=== PATIENT | male | born 1965 | race Caucasian/White ===

== ENCOUNTER 2020-01-10 12:54 | Emergency (ER) | payer SELFPAY ==
[2020-01-10 13:10] VITALS: BP 148/94; PULSE 88; RESP 18; TEMP 37.7; O2SAT 97; BMI 26.4
--- NOTE | 2020-01-10 13:32 | HMH.EDUTC ---
[facility] [place] Clinical Impression: Strep throat Disposition: Home, Self-Care Condition on Discharge: Good Instructions: Strep Throat (Alternative Therapy), Strep Throat, DI for Strep Throat Additional Instructions: *Monitor Temp, Over the counter Motrin or Tylenol as directed/as needed Tylenol every 4 hours and Motrin every 6 hours (as long as your family doctor has told you that you can take it) for fever or pain. and straight to ER if unable to lower temp less than 101.0 after medication given *Warm salt water gargles may help to soothe the throat *Throat Lozenges *Warm fluids like tea with honey may help to soothe the throat *Sleep elevated *Humidifier/Vaporizer *If you did not take Penicillin shot or was unable to, start taking antibiotic immediately and make sure that you take it for the FULL length of time although you should start to feel better in 24-48 hours *change toothbrush and toothpaste 24-48 hours after starting to take antibiotics so you do not reinfect yourself Monitor Temp. Tylenol and/or Ibuprofen as needed. ER if fever is no less than 101 despite alternating Tylenol and Ibuprofen * Encourage fluids, water, Gatorade, powerade, pedialyte if infant/toddler/or child *Cold fluids, popsicles and ice cream may feel good on his throat * Follow up IMMEDIATELY for new or worsening symptoms or no Noticeable improvement over the next 48-72 hours. 911 for difficulty breathing or swallowing Referrals: PCP,No [Primary Care Provider] - As needed Time of Disposition: 13:41 Medical Decision Making - Camron Inquiry Pt receiving controlled substance: No Camron was queried for this patient: No Vital Signs: 01/10/20 13:10 Temperature 99.9 F H Temperature Source Oral Pulse Rate [Right Brachial] 88 Respiratory Rate 18 Blood Pressure [Right Arm] 148/94 H Blood Pressure Mean [Right Arm] 112 Blood Pressure Source [Right Arm] Automatic Cuff Blood Pressure Position [Right Arm] Sitting 02 Sat by Pulse Oximetry 97 Oxygen Delivery Method Room Air - Lab Data Lab results reviewed: Yes: I reviewed the patient's lab results. Lab Results 01/10/20 13:44: Strep Scn [facility] Positive A Orders (Tests/Meds): ED MEDICATIONS Discontinued Medications Generic Name Dose Route Start Last Admin Trade Name Freq PRN Reason Stop Dose Admin Methylprednisolone Sodium Succinate 125 mg 01/10/20 13:37 01/10/20 13:50 Methylprednisolone Sod Succ 125mg Vial IM 01/10/20 13:38 125 mg ONCE ONE Administration Penicillin G Benzathine 1,200,000 unit 01/10/20 13:37 01/10/20 13:50 Penicillin G Benzathine 1,200,000 Units/2ml Syringe IM 01/10/20 13:38 1,200,000 unit ONCE ONE Administration Protocol ORDERS Category Date Time Status Covid-19 Nasal PCR ([facility]) Routine Lab 01/10/20 14:02 Ordered [facility] [place] HPI - General Stated complaint: sore throat Time Seen by Provider: 01/10/20 13:32 Mode of Arrival: Ambulatory Source of Information: Patient Limitations: No Limitations Description of Symptoms (Recalled from Triage Doc. by RN): PATIENT C/O SORE THROAT, FEVER, RIGHT EAR AND JAW PAIN SINCE FRIDAY NIGHT HEENT Symptoms (Recalled from RN notes): Yes Resp Symptoms (Recalled from RN notes): No Skin Symptoms (Recalled from RN notes): No MS Symptoms (Recalled from RN notes): No Functional Status (Recalled from RN notes): WNL - History of Present Illness Provider Complaint: Patient states that he started not feeling well last week and has been laying around thinking he may have had the flu States that his throat started hurting on Friday and has continued to get worse States that he has been having pain in his throat and ear when he swallows States that this morning it hurt when he swallowed his coffee so he come in to get checked - Related Data Home Medications Medication Instructions Recorded Confirmed No Known Home Medications 01/10/20 01/10/20 Allergies Allergy/AdvReac Type Severity Re
[2020-01-10 13:52] LABS: UTC Strep Screen (Rapid) Positive (Negative)
[2020-01-10 14:10] VITALS: BP 148/94; PULSE 88; RESP 18; TEMP 37.7; O2SAT 97
== END 2020-01-10 14:15 | disposition home or self-care (01) ==
PROVIDERS: Emergency Provider Nurse Practitioner
DX: J02.0 Streptococcal pharyngitis (principal)
CPT/HCPCS: 87880; 96372; 99202; J0561

== ENCOUNTER 2021-10-08 12:27 | Emergency (ER) | payer SELFPAY ==
[2021-10-08 12:30] VITALS: BP 138/90; PULSE 75; RESP 18; TEMP 36.7; O2SAT 98; BMI 27.1
[2021-10-08 12:54] VITALS: BP 138/90; PULSE 75; RESP 18; TEMP 36.7; O2SAT 98; BMI 27.3
--- NOTE | 2021-10-08 13:13 | HMH.EDUTC ---
[place] Disposition Clinical Impression: Contact dermatitis Qualifiers: Contact dermatitis type: allergic Contact dermatitis trigger: non-food plants Qualified Code(s): L23.7 - Allergic contact dermatitis due to plants, except food Cellulitis Qualifiers: Site of cellulitis: trunk Site of cellulitis of trunk: back Qualified Code(s): L03.312 - Cellulitis of back [any part except buttock] Disposition: Home, Self-Care Condition on Discharge: Good Instructions: Cellulitis, DI for Contact Dermatitis Additional Instructions: Try to identify and avoid contact with the offending substance. Don't start the oral steroids until tomorrow. Don't put the topical steroids (triamcinolone) on your face or your groin. Follow up with your regular doctor. GO TO THE ER FOR ANY WORSENING SYMPTOMS OR CONCERNS Prescriptions: cephALEXin [cephALEXin 500mg capsule] 500 mg PO Q6H 10 Days #40 cap Transmission Status: Received by [id number] methylPREDNISolone [Medrol] 4 mg PO DIRECTED 6 Days #21 packet Transmission Status: Received by [id number] Triamcinolone Acetonide 1 applicatio TP TIDP PRN 7 Days #1 gm PRN Reason: Itching Transmission Status: Received by [id number] Referrals: Provider,Referral, MD [Primary Care Provider] - Time of Disposition: 13:27 Medical Decision Making - Medical Records Medical records reviewed: No: I reviewed the patient's medical records. - Camron Inquiry Pt receiving controlled substance: No Vital Signs: 10/08/21 12:30 10/08/21 12:54 10/08/21 13:34 Temperature 98.0 F 98.0 F 98.0 F Temperature Source Oral Oral Pulse Rate 75 Pulse Rate [Left Radial] 75 75 Respiratory Rate 18 18 18 Blood Pressure 138/90 Blood Pressure [Left Arm] 138/90 138/90 Blood Pressure Mean [Left Arm] 106 106 Blood Pressure Source [Left Arm] Automatic Cuff Blood Pressure Position [Left Arm] Sitting 02 Sat by Pulse Oximetry 98 98 Oxygen Delivery Method Room Air [place] HPI - General Stated complaint: Rash on back Time Seen by Provider: 10/08/21 13:13 Mode of Arrival: Ambulatory Source of Information: Patient Limitations: No Limitations Description of Symptoms (Recalled from Triage Doc. by RN): patient comes in with complaints of rash on back. patient states rash began 1 week ago, but has began to get worse HEENT Symptoms (Recalled from RN notes): No Resp Symptoms (Recalled from RN notes): No Skin Symptoms (Recalled from RN notes): Yes MS Symptoms (Recalled from RN notes): No Functional Status (Recalled from RN notes): n/a - History of Present Illness Provider Complaint: He is here with complaints of having a rash on his back for the past 2 weeks. He believes he was origianally bit by a bug, but then it has got infected. He denies any fever or chills. - Related Data Previous Rx's Medication Instructions Recorded Triamcinolone Acetonide 1 applicatio TP TIDP PRN 7 Days #1 10/08/21 gm cephALEXin [cephALEXin 500mg 500 mg PO Q6H 10 Days #40 cap 10/08/21 capsule] methylPREDNISolone [Medrol] 4 mg PO DIRECTED 6 Days #21 10/08/21 packet Allergies Allergy/AdvReac Type Severity Reaction Status Date / Time No Known Allergies Allergy Verified 10/08/21 12:57 - Worker's Comp Is this a Worker's Comp case?: No [facility] History - Hepatitis A Screen Attestation statement:: This patient has been screened for Hepatitis A risk factors. I have reviewed the patient's past medical history: Yes - Social History Alcohol Intake: never Occupational Status: other ROS Obtained: Yes All systems reviewed & no additional complaints - Constitutional Constitutional: Reports as per HPI - Eyes Eyes: Reports eye discharge - ENT Ears, Nose, Mouth, and Throat: Reports as per HPI - Cardiovascular Cardiovascular: Denies chest pain Physical Exam - General General appearance: alert, in no apparent distress - Head Head exam: atraumatic, normocephalic, no
[2021-10-08 13:34] VITALS: BP 138/90; PULSE 75; RESP 18; TEMP 36.7
== END 2021-10-08 13:35 | disposition home or self-care (01) ==
PROVIDERS: Emergency Provider Nurse Practitioner Family
DX: L23.7 Allergic contact dermatitis due to plants, except food (principal); L03.312 Cellulitis of back [any part except buttock and flank]; Z79.52 Long term (current) use of systemic steroids; Z79.899 Other long term (current) drug therapy
CPT/HCPCS: 99213; G0463

== ENCOUNTER 2021-10-15 09:40 | Emergency (ER) | payer SELFPAY ==
[2021-10-15 09:45] VITALS: BP 141/86; PULSE 71; RESP 19; TEMP 36.8; O2SAT 98; BMI 28.6
--- NOTE | 2021-10-15 09:59 | HMH.EDUTC ---
[facility] – [place] Disposition Clinical Impression: Urticaria Disposition: Home, Self-Care Condition on Discharge: Good Instructions: DI for Rash Additional Instructions: Look around at home and make sure there is nothing that has changed that you could be reacting too Check to make sure that nothing has changed Clean bedding and chairs to make sure that nothing could have got on them that you are coming into contact with Follow up with your Family Doctor for further evaluation and examination Follow up [facility] for further testing Return if needed Straight to ER if any life threatening symptoms Prescriptions: predniSONE [Prednisone 20mg Tab] 20 mg PO BID 5 Days #10 tab Transmission Status: Received by [facility] Referrals: Provider,MD Ayaan [Primary Care Provider] - As needed Ronni Arvizu [Referring] - (make appointment for allergy testing) Gisela Vance MD [Referring] - (make appointment for Dermatology) Time of Disposition: : Medical Decision Making - Camron Inquiry Pt receiving controlled substance: No Camron was queried for this patient: No Vital Signs: 10/15/21 09:45 10/15/21 10:10 Temperature 98.2 F 98.2 F Temperature Source Oral Pulse Rate 71 Pulse Rate [Left Brachial] 71 Respiratory Rate 19 19 Blood Pressure 141/86 H Blood Pressure [Left Arm] 141/86 H Blood Pressure Mean [Left Arm] 104 Blood Pressure Source [Left Arm] Automatic Cuff Blood Pressure Position [Left Arm] Sitting 02 Sat by Pulse Oximetry 98 Oxygen Delivery Method Room Air Orders (Tests/Meds): ED MEDICATIONS Discontinued Medications Generic Name Dose Route Start Last Admin Trade Name Freq PRN Reason Stop Dose Admin Famotidine 20 mg 10/15/21 10:03 10/15/21 10:10 Famotidine 20mg Tablet PO 10/15/21 10:04 20 mg ONCE ONE Administration Loratadine 10 mg 10/15/21 10:04 10/15/21 10:09 Loratadine 10mg Tablet PO 10/15/21 10:05 10 mg ONCE ONE Administration Methylprednisolone Sodium Succinate 125 mg 10/15/21 10:03 10/15/21 10:10 Methylprednisolone Sod Succ 125mg Vial IM 10/15/21 10:04 125 mg ONCE ONE Administration [facility] [place] HPI - General Stated complaint: rash Time Seen by Provider: 10/15/21 09:59 Mode of Arrival: Ambulatory Source of Information: Patient Limitations: No Limitations Description of Symptoms (Recalled from Triage Doc. by RN): PATIENT C/O RASH TO SIDES AND AROUND TO BACK X 2 WEEKS. HE REPORTS HE WAS STARTED ON AN ANTIBIOTICS AND STEROIDS LAST WEEK BUT STATES RASH HAS GOTTEN WORSE HEENT Symptoms (Recalled from RN notes): No Resp Symptoms (Recalled from RN notes): No Skin Symptoms (Recalled from RN notes): Yes MS Symptoms (Recalled from RN notes): No Functional Status (Recalled from RN notes): WNL - History of Present Illness Provider Complaint: Patient states he was seen over a week ago for rash on his back States that the redness has got worse but the rash has continued to spead on his back States that he has looked around and not found anything that he can find he may be allergic too State that he has rewashed everything but still having the rash - Related Data Previous Rx's Medication Instructions Recorded Triamcinolone Acetonide 1 applicatio TP TIDP PRN 7 Days #1 10/08/21 gm cephALEXin [cephALEXin 500mg 500 mg PO Q6H 10 Days #40 cap 10/08/21 capsule] methylPREDNISolone [Medrol] 4 mg PO DIRECTED 6 Days #21 10/08/21 packet predniSONE [Prednisone 20mg 20 mg PO BID 5 Days #10 tab 10/15/21 Tab] Allergies Allergy/AdvReac Type Severity Reaction Status Date / Time No Known Allergies Allergy Verified 10/08/21 12:57 - Worker's Comp Is this a Worker's Comp case?: No [facility] History - Hepatitis A Screen Attestation statement:: This patient has been screened for Hepatitis A risk factors. I have reviewed the patient's past medical history: Yes - Social History Alcohol Intake: never Occupational
[2021-10-15 10:10] VITALS: BP 141/86; PULSE 71; RESP 19; TEMP 36.8; O2SAT 98
== END 2021-10-15 10:37 | disposition home or self-care (01) ==
PROVIDERS: Emergency Provider Nurse Practitioner
DX: L50.9 Urticaria, unspecified (principal)
CPT/HCPCS: 99212; G0463

== ENCOUNTER 2022-05-21 09:37 | Emergency (ER) | payer SELFPAY ==
--- NOTE | 2022-05-21 10:43 | EXP.UTC ---
Discharge Plan Disposition Patient Disposition: Home, Self-Care Condition: Good Prescriptions Prescriptions: New ibuprofen [IBU] 800 mg tablet 800 mg PO Q8HP PRN (Reason: Moderate Pain) Qty: 30 0RF Referrals Follow up/Referrals: Leonardo Crow DO [Staff Physician] - See instructions Provider,Referral, [Primary Care Provider] - See instructions Activity Restrictions/Add. Instructions Additional Instructions/Restrictions: Rest the extremity, apply ice for 15 minutes as tolerated three or four times per day, Elevate the extremity as tolerated while you are resting. Take ibuprofen for pain. I sent in a prescription to your pharmacy. Follow up with Dr. Crow (orthopedics).I spoke to him on the phone and he has looked at your x-rays. Please call his office and verify the appointment he was making in his office for on . Follow up with your regular doctor. GO TO THE ER FOR ANY WORSENING SYMPTOMS Non-weight bearing on your right leg until you are told different by the orthopedic physician (Dr. Crow). Clinical Impressions Clinical Impression: Fracture of right fibula Stand Alone Forms Stand Alone Forms: Work/School Release Instructions Patient Instructions: How to Use Crutches, How to Take Care of Your Splint, Fibula Shaft Fracture Discharge ED Provider: Carlin Diaz [facility] [place] General Stated complaint: [id number]/17@home pain in Rt foot Time Seen by Provider: 05/21/22 10:43 History of Present Illness Provider Complaint: He states that he was walking in his yard yesterday when he twisted his right ankle and fell. Since then he has had right ankle pain. He is unable to bear weight on his ankle. He denies other injury Related Data Previous Rx's Medication Instructions Recorded ibuprofen 800 mg tablet (IBU) 800 mg PO Q8HP PRN Moderate Pain 05/21/22 #30 tabs Allergies Allergy/AdvReac Type Severity Reaction Status Date / Time No Known Allergies Allergy Verified 10/08/21 12:57 [facility] Disclaimer: The information contained in this section may have been updated after the patient was seen, as this information can be updated by other users. Social History Smoking Status: Never smoker alcohol intake: never current occupational status: other Travel in the last 8 weeks: None ROS Obtained: Yes All systems reviewed & no additional complaints except as documented Constitutional Constitutional: Denies chills and Denies fever(s) Eyes Eyes: Denies eye discharge ENT Ears, Nose, Mouth, and Throat: Denies dizziness, Denies otalgia and Denies sore throat Cardiovascular Cardiovascular: Denies chest pain Respiratory Respiratory: Denies shortness of breath, Denies chest congestion, Denies cough, Denies stridor and Denies wheezing Gastrointestinal Gastrointestingal: Denies nausea or vomiting Musculoskeletal Musculoskeletal: Reports as per HPI Integumentary/Breasts Skin/Breast: Denies rash Neurologic Neurologic: Denies dizziness and Denies paresthesias Allergic/Immunologic Allergic/Immunologic: Denies wheezing Physical Exam General General appearance: alert and in no apparent distress Head Head exam: atraumatic, normocephalic and normal inspection Eye Eye exam: Present normal appearance, PERRL and EOMI ENT ENT exam: Present normal exam, normal oropharynx, mucous membranes moist, TM's normal bilaterally and normal external ear exam Neck Neck exam: Present normal inspection, full ROM and trachea midline; Absent meningismus or lymphadenopathy Chest Chest inspection: Present normal inspection and symmetric chest wall rise; Absent tenderness Respiratory Respiratory exam: Present normal lung sounds bilaterally; Absent respiratory distress Cardiovascular Cardiovascular exam: Present regular rate and normal rhythm; Absent JVD Abdominal Exam Abdominal exam: Present soft and normal bowel sounds; Absent distention, tenderness or guard
--- NOTE | 2022-05-21 10:44 | XR_ITS ---
FINAL REPORT CLINICAL HISTORY: fell FINDINGS: 3 views of the right ankle were obtained. Oblique mildly displaced fracture of the distal fibula best seen on the lateral view. Questionable small avulsion fracture of the inferior medial malleolus. The joint spaces are intact. The soft tissues are unremarkable. IMPRESSION: Fractures as above. Reviewed, Interpreted and Dictated by Lawrence Christensen MD Transcribed by Rico Banda Authenticated and [facility]
--- NOTE | 2022-05-21 10:44 | XR_ITS ---
FINAL REPORT CLINICAL HISTORY: fell FINDINGS: 3 views of the right foot were obtained. Oblique mildly displaced fracture of the distal fibula best seen on the lateral view. Questionable small avulsion fracture of the inferior medial malleolus. The joint spaces are intact. The soft tissues are unremarkable. IMPRESSION: Fractures as above. Reviewed, Interpreted and Dictated by Lawrence Christensen MD Transcribed by Rico Banda Authenticated and [facility]
[2022-05-21 10:45] VITALS: BP 164/89; PULSE 68; RESP 20; TEMP 37.1; O2SAT 97; BMI 26.4
--- NOTE | 2022-05-21 12:27 | PC.NURSE ---
Provider spoke with Dr. Crow he wants a posterior splint and non weight bearing.
[2022-05-21 13:00] VITALS: BP 164/89; PULSE 68; RESP 20; TEMP 37.1; O2SAT 97
== END 2022-05-21 13:00 | disposition home or self-care (01) ==
PROVIDERS: Emergency Provider Nurse Practitioner Family
DX: S72.401A Unspecified fracture of lower end of right femur, initial encounter for closed fracture (principal); W01.0XXA Fall on same level from slipping, tripping and stumbling without subsequent striking against object, initial encounter
CPT/HCPCS: 29405; 73610; 73630; 99212; 99214; G0463

== ENCOUNTER → 2022-05-30 08:39 | Outpatient (CLI) | payer SELFPAY ==
--- NOTE | 2022-05-30 08:49 | XR_ITS ---
FINAL REPORT CLINICAL HISTORY: fracture f/u COMPARISON: 05/21/2022 FINDINGS: AP, oblique, and lateral views of the right ankle were obtained. Plaster cast obscures detail. There is no significant interval change involving the fracture of the lateral malleolus. There is no appreciable callus formation. Soft tissues are normal. IMPRESSION: No significant interval change of the lateral malleolar fracture. Reviewed, Interpreted and Dictated by Amy Bob MD Transcribed by Cesilia Tomlin Authenticated and [facility]
== END ==
PROVIDERS: Visit Provider Podiatrist
DX: M25.571 Pain in right ankle and joints of right foot (principal); S82.401A Unspecified fracture of shaft of right fibula, initial encounter for closed fracture
CPT/HCPCS: 73610

== ENCOUNTER → 2022-06-11 13:16 | Outpatient (CLI) | payer SELFPAY ==
--- NOTE | 2022-06-11 13:24 | XR_ITS ---
FINAL REPORT CLINICAL HISTORY: rt ankle fx 3 weeks ago COMPARISON: May 30, 2022 FINDINGS: RIGHT ANKLE Three views of the right ankle were obtained. Again noted is an oblique fracture of the distal fibular metaphysis and a fracture of the inferior tip of the medial malleolus. Bony alignment is stable. There is no significant callus formation. There is medial and lateral soft tissue swelling. IMPRESSION: Again noted fractures of the distal fibular metaphysis and inferior tip of the medial malleolus. No significant callus formation. Reviewed, Interpreted and Dictated by Titus De Paz III, MD Transcribed by Anastacia Connell Authenticated and [facility]
== END ==
PROVIDERS: Visit Provider Orthopaedic Surgery
DX: M25.571 Pain in right ankle and joints of right foot (principal); S82.61XA Displaced fracture of lateral malleolus of right fibula, initial encounter for closed fracture
CPT/HCPCS: 73610